=== PATIENT | male | born 1940 | race Caucasian/White ===

== ENCOUNTER 2018-04-18 20:59 | Inpatient (IN) | payer MEDICARE, OTHER | END 2018-04-22 14:35 | disposition home health service (06) | LOC: ED HOLD 23:06 → ER 20:59 → ORTHO 4S 04-19 08:45 | DX: I63.9 Cerebral infarction, unspecified (principal); N39.0 Urinary tract infection, site not specified; I69.941 Monoplegia of lower limb following unspecified cerebrovascular disease affecting right dominant side; F03.90 Unspecified dementia, unspecified severity, without behavioral disturbance, psychotic disturbance, mood disturbance, and anxiety; I69.998 Other sequelae following unspecified cerebrovascular disease; H54.61 Unqualified visual loss, right eye, normal vision left eye ==